=== PATIENT | female | born 1980 | race Caucasian/White ===

== ENCOUNTER 2023-05-04 11:32 | Emergency (ER) | payer BC, MEDICAID ==
[2023-05-04 15:23] VITALS: BP 141/94; PULSE 89
== END 2023-05-04 13:42 | disposition home or self-care (01) ==
LOC: JD.ED 11:32
DX: S93.402A Sprain of unspecified ligament of left ankle, initial encounter (principal); Z88.0 Allergy status to penicillin; Z88.8 Allergy status to other drugs, medicaments and biological substances; X50.1XXA Overexertion from prolonged static or awkward postures, initial encounter
CPT/HCPCS: 73610-26-LT; 73610-LT; 99282; 99283